=== PATIENT | male | born 1990 | race Caucasian/White ===

== ENCOUNTER 2019-06-11 23:14 | Emergency (ER) | payer OTHER ==
--- NOTE | 2019-06-12 00:08 | EDM.PDOC ---
ED HPI GENERAL MEDICAL PROBLEM - General Chief Complaint: Chest Pain Stated Complaint: CHEST PAIN Time Seen by Provider: 06/11/19 23:29 Source of Information: Reports: Patient, RN Notes Reviewed - History of Present Illness INITIAL COMMENTS - FREE TEXT/NARRATIVE: 29-year-old male comes in with upper abdominal lower chest discomfort. He's been having intermittent upper abdominal discomfort for several weeks but today the discomfort is radiating up into the mid and even left mid and upper chest. This feels like a tightness and pressure type discomfort. Not severe but somewhat annoying. There is no radiation of pain to chest abdomen or back. No nausea or vomiting. No hx of Htn, diabetes or known heart problems. He does not smoke. He has not been otherwise ill. His provide back home thinks he likely has a hiatal hernia. Hx GE reflux. Chest Pain Score (Numeric/FACES): 4 - Related Data Allergies Allergy/AdvReac Type Severity Reaction Status Date / Time No Known Allergies Allergy Verified 06/11/19 23:27 Home Meds: Home Meds . [No Known Home Meds] 06/11/19 [History] Past Medical History - Past Surgical History Musculoskeletal Surgical History: Reports: Shoulder Surgery Social & Family History - Tobacco Use Smoking Status *Q: Never Smoker ED ROS GENERAL - Review of Systems Review Of Systems: See Below Constitutional: Denies: Fever, Chills, Diaphoresis HEENT: Reports: No Symptoms Respiratory: Denies: Shortness of Breath, Pleuritic Chest Pain, Cough Cardiovascular: Reports: Chest Pain GI/Abdominal: Reports: Abdominal Pain (mild upper abd pressure). Denies: Nausea , Vomiting Musculoskeletal: Denies: Neck Pain, Shoulder Pain, Arm Pain, Back Pain Skin: Reports: No Symptoms Neurological: Reports: No Symptoms ED EXAM, GENERAL - Physical Exam Exam: See Below General Appearance: Alert, No Apparent Distress Eye Exam: Bilateral Eye: PERRL Throat/Mouth: Normal Inspection Head: Atraumatic Neck: Supple Respiratory/Chest: No Respiratory Distress, Lungs Clear, Normal Breath Sounds, Chest Non-Tender Cardiovascular: Regular Rate, Rhythm GI/Abdominal: Soft, Tender (very mild tenderness upper mid abd) Extremities: Normal Inspection, Normal Range of Motion. No: Pedal Edema, Leg Pain Neurological: Alert, Oriented, No Motor/Sensory Deficits Skin Exam: Warm, Dry, Normal Color EKG INTERPRETATION EKG Date: 06/11/19 Rhythm: NSR [place]: Normal P-Wave: Present QRS: Normal ST-T: Normal QT: Normal Course - Vital Signs Last Recorded V/S: Last Vital Signs Temp 97.5 F 06/11/19 23:24 Pulse 82 06/11/19 23:24 Resp 16 06/11/19 23:24 BP 134/77 06/11/19 23:24 Pulse Ox 100 06/11/19 23:24 - Orders/Labs/Meds Orders: Active Orders 24 hr Category Date Time Status TROPONIN I [CHEM] Stat Lab 06/11/19 11:58 Received Departure - Departure Time of Disposition: 00:26 Disposition: Home, Self-Care 01 Condition: Fair Clinical Impression: Atypical chest pain GERD (gastroesophageal reflux disease) Qualifiers: Esophagitis presence: without esophagitis Qualified Code(s): K21.9 - Gastro- esophageal reflux disease without esophagitis Referrals: PCP,Not In Area [Primary Care Provider] - Forms: ED Department Discharge Additional Instructions: Continue to use tums as needed. I recomend you start pepcid, generic famotidine available OTC at a dosage of 20 mg twice daily. Follow up with your provider back home for further eval as planned. Return to ED as needed. Sepsis Event Note - Evaluation Sepsis Screening Result: No Definite Risk - Focused Exam Vital Signs: Vital Signs Temp Pulse Resp BP Pulse Ox 06/11/19 23:24 97.5 F 82 16 134/77 100 Date Exam was Performed: 06/12/19 Time Exam was Performed: 00:26 - My Orders Last 24 Hours: My Active Orders 06/11/19 11:58 TROPONIN I [CHEM] Stat - Assessment/Plan Last 24 Hours: My Active Orders 06/11/19 11:58 TROPONIN I [CHEM] Stat
== END 2019-06-12 00:45 | disposition home or self-care (01) ==
LOC: JD.ED 23:14
DX: K21.9 Gastro-esophageal reflux disease without esophagitis (principal)
CPT/HCPCS: 36415; 84484; 93010; 99282; 99284